=== PATIENT | female | born 1995 | race Asian ===

== ENCOUNTER 2021-11-23 12:23 | Emergency (ER) | payer MEDICAID ==
[~2021-11-23] VITALS: Ht 160 cm; Wt 61.2 kg
[2021-11-23 12:34] VITALS: BP 127/89
== END 2021-11-23 13:31 | disposition home or self-care (01) ==
LOC: ER 12:27
DX: S90.122A Contusion of left lesser toe(s) without damage to nail, initial encounter (principal); W22.03XA Walked into furniture, initial encounter; Y93.89 Activity, other specified; Y92.89 Other specified places as the place of occurrence of the external cause; Y99.8 Other external cause status
CPT/HCPCS: 73660-TC